=== PATIENT | female | born 2005 | race Caucasian/White ===

== ENCOUNTER 2024-01-18 21:57 | Outpatient (CLI) | payer OTHER, SELFPAY ==
[2024-01-18 22:13] VITALS: BMI 32.8
[2024-01-18 22:14] VITALS: BP 128/74; PULSE 110; RESP 18; TEMP 37.2; O2SAT 98; BMI 32.8
[2024-01-18 22:24] VITALS: PULSE 114; TEMP 36.8; O2SAT 98
[2024-01-18 22:33] LABS: Microscopic, Urine URINE MICROSCOPIC (MICROSCOPIC)
[2024-01-18 22:38] LABS: Benzodiazepines Screen,Urine Negative ng/ml (<200)
[2024-01-18 22:39] LABS: Amphetamine/Metha Screen,Urine Negative ng/ml (<1000); Barbiturates Screen,Urine Negative ng/ml (<200)
[2024-01-18 22:40] LABS: Methadone Screen,Urine Negative ng/ml (<300)
[2024-01-18 22:41] LABS: Cannabinoid Screen,Urine Negative ng/ml (<50); Cocaine Screen,Urine Negative ng/ml (<300)
[2024-01-18 22:42] LABS: Opiate Screen,Urine Negative ng/ml (<300); Phencyclidine Screen,Urine Negative ng/ml (<25)
[2024-01-19 00:54] LABS: Blood, Urine Negative (Negative); Glucose,Urine (UA) Negative (Negative); Ketones,Urine 2+ (Negative); Leukocyte Esterase,Urine TRACE (Negative); Nitrate,Urine Negative (Negative); Protein,Urine TRACE (Negative); Specific Gravity, Urine >= 1.030 (1.005-1.030)
[2024-01-19 00:58] LABS: Bilirubin,Urine 2+ (Negative); Color,Urine Dark Yellow (Yellow)
[2024-01-19 00:59] LABS: Appearance,Urine Slightly Cloudy (Clear)
[2024-01-19 01:17] LABS: Bacteria,Urine 2+ /lpf; Calcium Oxalate Crystals,Urine 1+ /lpf; Mucus,Urine Trace /lpf
== END 2024-01-18 22:53 | disposition home or self-care (01) ==
LOC: OBOUT 21:59 → OB 22:00
PROVIDERS: Visit Provider Obstetrics & Gynecology
DX: O36.8120 Decreased fetal movements, second trimester, not applicable or unspecified (principal); Z3A.27 27 weeks gestation of pregnancy
CPT/HCPCS: 80307; 81001; 87086; G0463

== ENCOUNTER 2024-03-20 16:20 | Outpatient (CLI) | payer OTHER, SELFPAY | END 2024-03-20 23:59 | disposition home or self-care (01) | LOC: LAB.DROPOF 16:20 | PROVIDERS: PCP Obstetrics & Gynecology; Visit Provider Obstetrics & Gynecology | DX: Z34.90 Encounter for supervision of normal pregnancy, unspecified, unspecified trimester (principal) | CPT/HCPCS: 86403 ==

== ENCOUNTER 2024-03-26 12:34 | Outpatient (CLI) | payer OTHER, SELFPAY ==
--- NOTE | 2024-03-26 12:34 | US_ITS ---
PROCEDURE: US OB BPP W/FET-MAT S/D CLINICAL INDICATION: growth and RUPESH COMPARISON: No exams were available for comparison FINDINGS: Transabdominal sonographic images of the uterus were obtained. From her established due date she is 36weeks 6days. The following parameters are obtained: Viable Fetus in the breech presentation with a posterior placenta grade 3. Average ultrasound age is 36weeks 5days Estimated weight 2,953g, 6 lb 8 oz The cervix measures 4.1 cm. Measurements: heart Rate = 152bpm BPD = 35weeks 6days, 33 percentile HC = 37weeks 4days, 38 percentile AC = 36weeks 3days, 50 percentile FL = 36weeks 5days, 41 percentile HC/AC is 1.01 FL/BPD is 0.81 FL/AC is 0.22 45 percentile Amniotic fluid index: 7.8cm, MVP 2.87 cm Qualitative AFV:2 Breathing movements: 2 Gross Body Movements: 2 Tone: 2 Biophysical profile score: 8 No obvious anomalies evident.Kidneys, stomach, bladder, four-chamber heart, three-vessel cord appear normal. There is mild bilateral renal pelvis dilation measuring 5.3 mm and 4.6 mm IMPRESSION: 1. Viable fetus in the BREECH presentation with a posterior placenta grade 3. 2. The fluid is within normal limits with an amniotic fluid index 7.8 cm, MVP 2.87 cm. 3. Biophysical profile is 8/8 with good breathing movement and movement seen. 4. There has been good growth with the fetus currently 45th percentile. 5. Limited anatomical scan appears normal. 6. There is mild bilateral renal pelvis dilation measuring 5.3 mm and 4.6 mm. Dictated by: Sarmad Lares MD 03/26/2024 14:44 Sarmad Lares MD in [facility] 03/26/2024 14:46
== END 2024-03-26 23:59 | disposition home or self-care (01) ==
LOC: RAD 12:34
PROVIDERS: PCP Nurse Practitioner Family; Visit Provider Obstetrics & Gynecology
DX: O36.5990 Maternal care for other known or suspected poor fetal growth, unspecified trimester, not applicable or unspecified (principal)
CPT/HCPCS: 76811; 76819; 76820